=== PATIENT | female | born 1955 | race Caucasian/White ===

== ENCOUNTER 2025-02-20 13:05 | Outpatient (NON) | payer MEDICARE, SELFPAY ==
[2025-02-20 13:37] LABS: Hematocrit 32.0 % (35.0-42.0); Hemoglobin 9.9 g/dL (11.7-13.8); Immature Granulocyte Percent A 0.6 % (0.0-0.0); Lymphocytes Absolute Auto 1.04 K/mm3 (1.10-4.50); Mean Corpuscular HGB Conc 30.9 g/dL (32-36); Mean Corpuscular Hemoglobin 26.8 pg (27.0-31.0); Mean Corpuscular Volume 86.7 fL (78.0-102.0); Nucleated Red Blood Cells Absolute Auto 0.00 K/mm3 (0.00-0.00); Nucleated Red Blood Cells Perc 0.0 % (0-0.0); Platelet Count Result 220 K/mm3 (150-420); Red Blood Count 3.69 M/mm3 (4.20-5.40); White Blood Count 7.8 K/mm3 (4.8-10.8)
--- OUTSIDE RECORDS SUMMARY | 2025-02-20 13:50 | XMS_ITS | Encounter Summary ---
Author Organization [facility] Address [address] [place] [id number] Care Team Providers Care Loss Prevention Consultant Name Role Phone Dusty Cordero MD Primary Care Provider [phone] Helen Kennedy MD Unavailable Josefa Jewell MD Unavailable Unavailabl Mina Veloz MD Unavailable Melani Velasco MD Primary Care Provider + [phone] Desirae Bills MD Unavailable [phone] Encounter Details Date Type Department Care Team (Latest Contact Info) Description 02/13/2018 Abstract [facility] , Santi Díaz MD Social History Tobacco Use Types Packs/Day Years Used Date Smoking Tobacco: Never Assessed Comments Unknown Sex and Gender Information Value Date Recorded Sex Assigned at Female 11/07/2022 12:28 PM CDT Legal Sex Female 7:10 PM CDT Gender Identity Female 11/07/2022 12:28 PM CDT Sexual Orientation Straight 11/07/2022 12 :28 PM CDT documented as of this encounter Plan of Treatment Not on file documented as of this encounter Visit Diagnoses Not on filedocumented in this encounter Additional Health Concerns Infection Onset Date Last Indicated Resolved Time COVID-19 Rule Out 07/14/2020 07/14/2020 07/15/2020 2:31 PM CDT COVID-19 Rule Out 03/21/2021 03/21/2021 03/21/2021 2:29 PM HYDRO STATION SUPERVISOR COVID-19 Rule Out 04/13/2021 04/13/2021 04/13/2021 2:59 PM HYDRO STATION SUPERVISOR COVID-19 Confirmed 04/13/2021 04/13/2021 12:32 AM HYDRO STATION SUPERVISOR COVID-19 Rule Out 04/11/2022 04/11/2022 04/11/2022 11:55 AM HYDRO STATION SUPERVISOR COVID-19 Rule Out 07/19/2022 07/19/2022 07/19/2022 9:03 AM CDT COVID-19 Rule Out 02/18/2023 02/18/2023 02/18/2023 12:23 PM HYDRO STATION SUPERVISOR COVID-19 Rule Out 02/09/2024 02/09/2024 02/09/2024 10:15 PM CDT COVID-19 Rule Out 02/24/2024 02/24/2024 02/24/2024 9:41 AM HYDRO STATION SUPERVISOR Respiratory Rule Out 06/04/2024 06/04/2024 025 9:33 AM HYDRO STATION SUPERVISOR COVID-19 Rule Out 06/04/2024 06/04/2024 06/04/2024 9:33 AM HYDRO STATION SUPERVISOR documented as of this encounter Care Teams Loss Prevention Consultant Relationship Specialty Start Date End Date Dusty Cordero MD PCP - General FAMILY PRACTICE 12/31/18 07/18/22 Melani Velasco MD [address] [place] [phone] PCP - General FAMILY PRACTICE 07/19/22 Helen Kennedy MD [address] [place] [address] Consulting Physician CARDIOVASCULAR DISEASE 02/17/20 Josefa Jewell MD [address] [place] [address] Consulting Physician CARDIOVASCULAR DISEASE 05/21/20 Mina Perez MD [address] [place] [address] Vascular/Ophthalmic Surgeon INTERNAL MEDICINE 10/16/20 Desirae Bills MD [address] [place] [address] Consulting Physician OTOLARYNGOLOGY 05/30/24 05/30/25 documented as of this encounter
--- OUTSIDE RECORDS SUMMARY | 2025-02-20 13:50 | XMS_ITS | Encounter Summary ---
Author Organization [facility] Address [address] [place] [address] Care Team Providers Care Home Teaching Grades 7 And 8 Teacher Name Role Phone Dusty Cordero MD Primary Care Provider [phone] Helen Kennedy MD Unavailable Josefa Jewell MD Unavailable Unavailabl e Mina Perez MD Unavailable Melani Velasco MD Primary Care Provider + [phone] Desirae Bills MD Unavailable [phone] Encounter Details Date Type Department Care Team (Late st Contact Info) Description 06/24/2017 Abstract [facility] [address] [place] [address] , Generic Conversion, Social History Tobacco Use Types Packs/Day Years [...] Rule Out 03/21/2021 03/21/2021 03/21/2021 2:29 PM HOME BASED ASSISTANT COVID-19 Rule Out 04/13/2021 04/13/2021 04/13/2021 2:59 PM HOME BASED ASSISTANT COVID-19 Confirmed 04/13/2021 04/13/2021 12:32 AM HOME BASED ASSISTANT COVID-19 Rule Out 04/11/2022 04/11/2022 04/11/2022 11:55 AM HOME BASED ASSISTANT COVID-19 Rule Out 07/19/2022 07/19/2022 07/19/2022 9:03 AM CDT COVID-19 Rule Out 02/18/2023 02/18/2023 02/18/2023 12:23 PM HOME BASED ASSISTANT COVID-19 Rule Out 02/09/2024 02/09/2024 02/09/2024 10:15 PM CDT COVID-19 Rule Out 02/24/2024 02/24/2024 02/24/2024 9:41 AM HOME BASED ASSISTANT Respiratory Rule Out 06/04/2024 06/04/2024 025 9:33 AM HOME BASED ASSISTANT COVID-19 Rule Out 06/04/2024 06/04/2024 06/04/2024 9:33 AM HOME BASED ASSISTANT documented as of this encounter Care Teams Home Teaching Grades 7 And 8 Teacher Relationship Specialty Start Date End Date Dusty Cordero MD PCP - General FAMILY PRACTICE 12/31/18 07/18/22 Melani Velasco MD [address] [place] [phone] PCP - General FAMILY PRACTICE 07/19/22 Helen Kennedy MD [address] [place] [address] Consulting Physician CARDIOVASCULAR DISEASE 02/17/20 Josefa Jewell MD [address] [place] [address] Consulting Physician CARDIOVASCULAR DISEASE 05/21/20 Mina Perez MD [address] [place] [address] Vascular/District Sales Coordinator INTERNAL MEDICINE 10/16/20 Desirae Bills MD [address] [place] [address] Consulting Physician OTOLARYNGOLOGY 05/30/24 05/30/25 documented as of this encounter
--- OUTSIDE RECORDS SUMMARY | 2025-02-20 13:50 | XMS_ITS | Encounter Summary ---
Author Organization [facility] Address [facility] [place] [address] Care Team Providers Care Director Drug Name Role Phone Dusty Cordero MD Primary Care Provider [phone] Helen Kennedy MD Unavailable Josefa Jewell MD Unavailable Unavailabl Mina Veloz MD Unavailable Melani Velasco MD Primary Care Provider + [phone] Desirae Bills MD Unavailable [phone] Encounter Details Date Type Department Care Team (Late st Contact Info) Description 09/15/2018 Abstract [facility] [address] [place] [address] , Generic Conversion, Social History Tobacco Use [...] Rule Out 03/21/2021 03/21/2021 03/21/2021 2:29 PM SALESPERSON SURGICAL APPLIANCES COVID-19 Rule Out 04/13/2021 04/13/2021 04/13/2021 2:59 PM SALESPERSON SURGICAL APPLIANCES COVID-19 Confirmed 04/13/2021 04/13/2021 12:32 AM SALESPERSON SURGICAL APPLIANCES COVID-19 Rule Out 04/11/2022 04/11/2022 04/11/2022 11:55 AM SALESPERSON SURGICAL APPLIANCES COVID-19 Rule Out 07/19/2022 07/19/2022 07/19/2022 9:03 AM CDT COVID-19 Rule Out 02/18/2023 02/18/2023 02/18/2023 12:23 PM SALESPERSON SURGICAL APPLIANCES COVID-19 Rule Out 02/09/2024 02/09/2024 02/09/2024 10:15 PM CDT COVID-19 Rule Out 02/24/2024 02/24/2024 02/24/2024 9:41 AM SALESPERSON SURGICAL APPLIANCES Respiratory Rule Out 06/04/2024 06/04/2024 025 9:33 AM SALESPERSON SURGICAL APPLIANCES COVID-19 Rule Out 06/04/2024 06/04/2024 06/04/2024 9:33 AM SALESPERSON SURGICAL APPLIANCES documented as of this encounter Care Teams Director Drug Relationship Specialty Start Date End Date Dusty Cordero MD PCP - General FAMILY PRACTICE 12/31/18 07/18/22 Melani Velasco MD [address] [place] [phone] PCP - General FAMILY PRACTICE 07/19/22 Helen Kennedy MD [address] [place] [address] Consulting Physician CARDIOVASCULAR DISEASE 02/17/20 Josefa Jewell MD [address] [place] [address] Consulting Physician CARDIOVASCULAR DISEASE 05/21/20 Mina Perez MD [address] [place] [address] Vascular/Glazier Stained Glass INTERNAL MEDICINE 10/16/20 Desirae Bills MD [address] [place] [address] Consulting Physician OTOLARYNGOLOGY 05/30/24 05/30/25 documented as of this encounter
--- OUTSIDE RECORDS SUMMARY | 2025-02-20 13:50 | XMS_ITS | Encounter Summary ---
Author Organization [facility] Address [address] [place] [address] Care Team Providers Care Web Project Manager Name Role Phone Mina Perez MD Unavailable Melani Velasco MD Primary Care Provider [phone] Desirae Bills MD Unavailable [phone] Encounter Details Date Type Department Care Team (Late st Contact Info) Description 03/05/2024 Hospital Follow-up Call [facility] [address] [place] [address] Lynda Sanchez, RN Social History Tobacco Use Types Packs/Day Years Used Date Smoking Tobacco: Never Smokeless Tobacco: Never Alcohol Use Standard Drinks/Week Comments Never 0 (1 standard drink = 0.6 oz pur e alcohol) OASIS D0700: Social Isolation Answer Da te Recorded Frequency of experiencing loneliness or isolatio n Never 02/06/2023 OASIS A1250: Transportation Answer Date Recorded Lack of Transportation (Medical) No 02/06/2023 Lack of Transportation (Non-Medical) No 02/06/2023 Patient Unable or Declines to Respond No 02/06/2023 OASIS B1300: Health Literacy Answer Ruben e Recorded Frequency of needing help to read materials from doctor or pharmacy Never 02/06/2023 [facility] Utilities Answer Date Recorded In the past 12 months has th e [employer], gas, oil, or water company threatened to shut off services in your home? No 02/24/2024 Humiliation, Afraid, Rape, and Kick questionnair e Answer Date Recorded Within the last year, have y ou been afraid of your partner or ex-partner? No 02/24/2024 Within the last year, have y ou been humiliated or emotionally abused in other ways by your partner or ex-partner? No Within the last year, have y ou been kicked, hit, slapped, or otherwise physically hurt by your partner or ex-partner? No 02/24/2024 Within the last year, have y ou been raped or forced to have any kind of sexual activity by your partner or ex-partner? No 02/24/2024 Social Connection and Isolation Panel Answer Date Recorded In a typical week, how many times do you talk on the phone with family, friends, or neighbors? More than three times a week 11/07/2022 How often do you get togethe r with friends or relatives? Twice a week 11/07/2022 How often do you attend chur ch or mandaeism services? More than 4 times per year 11/07/2022 Do you belong to any clubs o r organizations such as mu-ism groups, unions, fraternal or athletic groups, or school groups? Yes 11/07/2022 How often do you attend meet ings of the clubs or organizations you belong to? More than 4 times per year 11/07/2022 Are you , , di vorced, , never , or living with a partner? 11/07/2022 AUDIT-C Answer Date Recorded Q1: How often do you have a drink containing alcohol? Never 11/07/2022 Q2: How many drinks containi ng alcohol do you have on a typical day when you are drinking? Patient does not drink Q3: How often do you have si x or more drinks on one occasion? Never 11/07/2022 Overall Financial Resource Strain (CARDIA) Answe r Date Recorded How hard is it for you to pa y for the very basics like food, housing, medical care, and heating? Not hard at all 02/24/2024 PHQ-2 Answer Date Recorded Patient Health Questionnaire-2 Score 0 11/07/2022 [facility] - Occupational Stress Questionnaire Answer Date Recorded Do you feel stress - tense, restless, nervous, or anxious, or unable to sleep at night because your mind is troubled all the time - these days? To some extent 02/18/2023 Exercise Vital Sign Answer Date Recorde d On average, how many days pe r week do you engage in moderate to strenuous exercise (like a brisk walk)? 0 days 02/18/2023 On average, how many minutes do you engage in exercise at this level? 0 min 02/18/2023 Hunger Vital Sign Answer Date Recorded Within the past 12 months, y ou worried that your food would run out before you got the money to buy more. Never true 02/24/20 24 Within the past 12 months, t he food you bought just didn't last and you didn't have money to get more. Never true 02/24/2024 PRAPARE - Transportation Answer Date Re corded In the past 12 months, has l ack of transportation kept you from medical appointments or from getting medications? No 02/08 In the past 12 months, has l ack of transportation kept you from meetings, work, or from getting things needed for daily living? No 02/24/2024 Housing Stability Vital Sign Answer Ruben e Recorded In the last 12 months, was t here a time when you were not able to pay the mortgage or rent on time? No 03/03/2023 In the last 12 months, how many places have you lived? 1 03/03/2023 In the last 12 months, was t here a time when you did not have a steady place to sleep or slept in a intermediate (including now)? No 03/03/2023 Housing Stability Vital Sign Answer Ruben e Recorded In the last 12 months, was t here a time when you were not able to pay the mortgage or rent on time? No 02/24/2024 In the past 12 months, how m any times have you moved where you were living? 1 02/24/2024 At any time in the past 12 [facility], were you homeless or living in a intermediate (including now)? No 02/24/2024 Comments No Sex and Gender Information Value Date Recorded Sex Assigned at Female 11/07/2022 12:28 PM CDT Legal Sex Female 7:10 PM CDT Gender Identity Female 11/07/2022 12:28 PM CDT Sexual Orientation Straight 11/07/2022 12 :28 PM CDT Occupation Industry Job Start Date Job End Date Not on file Not on file Not on file Not on file documented as of this encounter Functional Status * Are you deaf or do you have serious difficulty hearing Answer Date of Assessment Author Status No 02/24/2024 3:18 PM Cha Cox RN Active * Are you blind or do you have serious difficulty seeing, even when wearing glasses? Answer Date of Assessment Author Status No 02/24/2024 3:18 PM Cha Cox RN Active * Do you have serious difficulty walking or climbing stairs? Answer Date of Assessment Author Status No 02/24/2024 3:18 PM Cha Cox RN Active * Do you have difficulty dressing or bathing? Answer Date of Assessment Author Status No 02/24/2024 3:18 PM Cha Cox RN Active * Because of a physical, mental, or emotional condition, do you have difficulty doing errands alone such as visiting a doctor's office or shopping? Answer Date of Assessment Author Status No 02/24/2024 3:18 PM Cha Cox RN Active documented as of this encounter Mental Status * Because of a physical, mental, or emotional condition, do you have serious difficulty concentrating, remembering, or making decisions? Answer Entry Date Author Status No 02/24/2024 3:18 PM Cha Cox RN Active documented in this encounter Plan of Treatment Not on file documented as of this encounter Goals Goal Patient Goal Type Associated Problems Recent Progress Patient-Stated? Author Patient will return to prior living situation and remain independent in ADLs upon discharge from hospital Lifestyle No Deidra Dacosta RN documented as of this encounter Visit Diagnoses Not on filedocumented in this encounter Additional Health Concerns Infection Onset Date Last Indicated Resolved Time Respiratory Rule Out 06/04/2024 06/04/2024 025 9:33 AM FINANCIAL REPRESENTATIVE COVID-19 Rule Out 06/04/2024 06/04/2024 06/04/2024 9:33 AM FINANCIAL REPRESENTATIVE Assessment Noted Time PHQ-9 Depression Total Score: 0 04/08/20 21 9:26 AM FINANCIAL REPRESENTATIVE documented as of this encounter Care Teams Web Project Manager Relationship Specialty Start Date End Date Melani Velasco MD [address] [place] [phone] PCP - General FAMILY PRACTICE 07/19/22 Mina Perez MD Vascular/Mosaic Tiler INTERNAL MEDICINE 10/16/20 Desirae Bills MD [address] [place] [phone] Consulting Physician OTOLARYNGOLOGY 05/30/24 05/30/25 documented as of this encounter
--- OUTSIDE RECORDS SUMMARY | 2025-02-20 13:51 | XMS_ITS | Patient Health Record ---
Author Organization [facility] Address [address] [place] [address] Care Team Providers Care Scrap Materials Buyer Name Role Phone KALYN CAMPA Unavailable [phone] Dusty Cordero Unavailable Unavailable Reason For Referral No Information Medications Medication SIG (Take, Route, Frequency, Duration) Notes Start Date End Date Status Nitrofurantoin ; Duration: -2 *Pick strength-form from [facility]pan for eRX* 10/01/2019 Active Carvedilol 3.125 MG Oral; Duration: -2 10/01/2019 Active Losartan Potassium ; Duration: -2 *Pick strength-form from [facility] for eRX* 10/01/2019 Active Aspirin 81 ; Duration: -2 *Pick strength-form from [facility] for eRX* 10/01/2019 Active TRAMADOL 50 ; Duration: -2 *Reorder from [facility] for eRx and Interaction Alerts* 10/01/2019 Active Ipratropium-Albuterol 0.5 mg-3 mg(2.5 ; Duration: -2 *Pick strength-form from [facility] for eRX* 10/01/2019 Active Fluconazole 200 MG Oral; Duration: -2 10/01/2019 Active Nitroglycerin 0.4 MG Sublingual; Duration: -2 10/01/2019 Active Ventolin HFA ; Duration: -2 *Pick strength-form from [facility] for eRX* 10/01/2019 Active Lidocaine 4 % External; Duration: -2 09/17/2019 Active HUMALOG U-100 INSULIN ; Duration: -2 *Reorder f rom [facility] for eRx and Interaction Alerts* 10/01/2019 Active Claritin ; Duration: -2 *Pick strength-form from Med[facility] for eRX* 10/01/2019 Active Bisoprolol-hydroCHLORO thiazide 5-6.25 MG Oral; Duration: -2 10/01/2019 Act tee Gabapentin 300 ; Duration: -2 *Pick strength-form from [facility] for eRX* 11/19/2019 Active ATORVASTATIN 20 ; Duration: -2 *Reorder from [facility] for eRx and Interaction Alerts* 10/01/2019 Active Gabapentin 100 MG Oral Capsule *Reorder from [facility] for eRx and Interaction Alerts* 09/17/2019 Active Gabapentin 100 MG Oral; Duration: -2 10/17/2019 Active Lisinopril 2.5 ; Duration: -2 *Pick strength-form from [facility] for eRX* 10/01/2019 Active Nystatin 966151 UNIT/GM External; Duration: -2 10/01/2019 Active Symbicort 160-4.5 MCG/ACT Inhalation; Duration: -2 10/01/2019 Active Fluoxetine 20 ; Duration: -2 *Reorder from [facility] for eRx and Interaction Alerts* 10/01/2019 Active PANTOPRAZOLE 40 ; Duration: -2 *Reorder from [facility] for eRx and Interaction Alerts* 10/01/2019 Active Ondansetron 4 MG Oral; Duration: -2 10/01/2019 Active Fluticasone Propionate 50 MCG/ACT Nasal; Duration: -2 10/01/2019 Active Nystop 253616 UNIT/GM External; Duration: -2 10/01/2019 Active Colace 100 MG Oral; Duration: -2 10/01/2019 Active GLUCAGEN ; Duration: -2 *Reorder from [facility] for eRx and Interaction Alerts* 10/01/2019 Active Celecoxib 200 MG Oral; Duration: -2 10/01/2019 Active Nystatin-Triamcinolone ; Duration: -2 *Pick strength-form from [facility] for eRX* 10/01/2019 Active CLOPIDOGREL 75 ; Duration: -2 *Reorder from [facility] for eRx and Interaction Alerts* 10/01/2019 Active Problems Problem Type SNOMED Code ICD Code Onset Dates Problem Status W/U Status Risk Notes Problem Plantar wart (20881828) Plantar wart (B07.0) 12/18/19 21 Active confirmed Problem Disorder of thyroid gland (61685512) Disorder of thyroid, unspecified (E07.9) 09/17/19 20 Active confirmed Problem Polyneuropathy due to type 2 diabetes mellitus (436095178) Type 2 diabetes mellitus with diabetic polyneuropathy (E11.42) 12/18/19 21 Active confirmed Problem Atherosclerotic heart disease of [place] coronary artery without angina pectoris (142980031071266) Atherosclerotic heart disease of [place] coronary artery without angina pectoris (I25.10) 09/17/19 20 Active confirmed Problem Old myocardial infarction (2326276) Old myocardial infarction (I25.2) 09/17/19 20 Active confirmed Problem Peripheral vascular disease (607768018) Other specified peripheral vascular diseases (I73.89) 09/16/19 20 Active confirmed Problem Embolism from thrombosis of vein of lower extremity (391374047) Acute embolism and thrombosis of unspecified deep veins of unspecified lower extremity (I82.409) 09/17/19 20 Active confirmed Problem Chronic obstructive pulmonary disease (51634847) Chronic obstructive pulmonary disease, unspecified (J44.9) 09/17/19 20 Active confirmed Problem Uncomplicated asthma (disorder) (036710281) Unspecified asthma, uncomplicated (J45.909) 09/17/19 20 Active confirmed Problem 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) 12/18/19 21 Active confirmed Problem Plantar fascial fibromatosis (92375722) Plantar fascial fibromatosis (M72.2) 07/14/19 21 Active confirmed Problem Metatarsalgia of left foot (552099848897889) Metatarsalgia, left foot (M77.42) 07/14/19 21 Active confirmed Problem Long-term current use of anticoagulant (414428908) skilled nursing (current) use of anticoagulants (Z79.01) 09/17/19 20 Active confirmed Problem Family history of ischemic heart disease (959324060) Family history of ischemic heart disease and other diseases of the circulatory system (Z82.49) 09/17/19 20 Active confirmed Problem Essential hypertension (66162457) Essential (primary) hypertension (I10) 09/17/19 20 Active confirmed Plan Of Treatment No Information Insurance Providers Payer Name Payer Address Payer Phone Subscriber Number Group Number Insured Name Patient Relationship to Insured Coverage Start Date Coverage End Date [place] [address] ELVIRA LEVIN [id number] [phone] [id number] FRANDY SWANN Self - patient is the insured [facility] DEPT OF PUBLIC AID [address] [address] [place] [address] [phone] [id number] FRANDY SWANN Self - patient is the insured
--- OUTSIDE RECORDS SUMMARY | 2025-02-20 13:51 | XMS_ITS | Clinical Summary ---
Author Organization [facility] Address [facility] [place] [address] Care Team Providers Care Separating Machine Operator Name Role Phone Mina Perez MD Unavailable Melani Velasco MD Primary Care Provider [phone] Desirae Bills MD Unavailable [phone] Allergies Active Allergy Reactions Criticality Noted Date Comments Influenza Vaccines Other (see comment) 01/22/20 21 Contradicted with treatment for ruptured disc Cephalexin Rash Low 01/21/2021 Latex Rash Low 01/21/2021 Levofloxacin Rash Low 01/21/2021 Tape Rash Low 01/21/2021 Medications ipratropium-albut amilcar 0.5-2.5 (3) MG/3ML SolutionIndicatio ns:asthma, copd Take by nebulization every 6 (six) hours as needed. Indications: asthma, copd Active albuterol sulfate HFA 108 (90 Base) MCG/ACT inhalerIndication s:asthma, copd Inhale 2 puffs into the lungs every 4 (four) hours as needed for Wheezing. Indications: asthma, copd Active fluoxetine 20 MG capsuleIndication s:depression Take 1 capsule (20 mg total) by mouth nightly at bedtime. Indications: depression Active fluticasone propionate 50 MCG/ACT nasal sprayIndications: sinus allergies 1 spray by Nasal route 2 (two) times daily. Indications: sinus allergies Active docusate sodium 100 MG capsuleIndication s:stool softner Take 1 capsule (100 mg total) by mouth 2 (two) times daily as needed for Constipation. Indications: stool softner 10 capsule 020 Active BREO ELLIPTA 200-25 MCG/INH inhalerIndication s:asthma, copd INHALE 1 PUFF BY MOUTH ONCE DAILY Active cyanocobalamin 1000 MCG/ML injectionIndicati ons:supplement INJECT 1 ML ONCE EVERY MONTH 021 Active Continuous Blood Gluc Sensor (DEXCOM G6 SENSOR) Misc CHANGE EVERY 10 DAYS Active omeprazole 20 MG capsuleIndication s:acid reflux Take 1 capsule (20 mg total) by mouth 2 (two) times a day. Indications: acid reflux 021 Active clopidogrel (PLAVIX) 75 MG tabletIndications :blood thinner Take 1 tablet by mouth once daily 90 tablet 022 Active rosuvastatin (CRESTOR) 10 MG tabletIndications :cholesterol TAKE 1 TABLET BY MOUTH ONCE DAILY AT BEDTIME 90 tablet 022 Active magnesium oxide (MAG-OX) 400 MG tabletIndications :supplement Take 1 tablet (400 mg total) by mouth daily. 30 tablet 022 Active Additional Information Patient taking differently:400 mg Oral2 times daily, Indications: supplement, Reported on 06/05/2024 OXYGENIndications :hypoxia 2 L/min by Nasal route as needed (hypoxia). to wear at sleep, as needed for dyspnea Indications: hypoxia 023 Active Cholecalciferol (VITAMIN D3) 50 MCG (2000 UT) CapIndications:Vi tamin D Deficiency Take 1 capsule by mouth daily. Indications: Vitamin D Deficiency Active gabapentin (NEURONTIN) 600 MG tabletIndications :Neuropathic Pain Take 2 tablets (1,200 mg total) by mouth 3 (three) times daily. Indications: Neuropathic Pain 023 Active RIMEGEPANT SULFATE OR Take 75 mg by mouth as needed. Active insulin regular, CONCENTRATED, (HUMULIN R) 500 UNIT/ML SolutionIndicatio ns:Diabetes Mellitus Inject 35 Units into the skin see administration instructions. Indications: Diabetes with breakfast , lunch and supper 20 mL 023 Active Additional Information Patient taking differently: 115 UnitsSubcutaneous See admin instructions, 115 [id number] bedtime, Indications: Diabetes Mellitus, Reported on 06/05/2024 montelukast (SINGULAIR) 10 MG tabletIndications :asthma, copd Take 1 tablet by mouth once daily 90 tablet Active losartan (COZAAR) 100 MG tablet Take 1 tablet (100 mg total) by mouth daily. Active Glucagon (GVOKE HYPOPEN 1-PACK) 0.5 MG/0.1ML Solution Auto-injector Active insulin glargine (LANTUS) 100 UNIT/ML injection (VIAL) Inject 65 Units into the skin 2 (two) times daily. Active levETIRAcetam (KEPPRA) 500 MG tablet Take 1.5 tablets (750 mg total) by mouth 2 (two) times daily. Active levothyroxine (SYNTHROID) 75 MCG tablet Take 1 tablet (75 mcg total) by mouth every morning. Active furosemide (LASIX) 20 MG tablet Take 2 tablets (40 mg total) by mouth daily. 120 tablet Active apixaban (ELIQUIS) 5 MG tablet Take 1 tablet (5 mg total) by mouth 2 (two) times daily. Start Taking Apixaban 5 mg BID FROM 03/08/24. DO NOT TAKE MEDICATION BEFORE 60 tablet Active ondansetron (ZOFRAN-ODT) 4 MG disintegrating tablet Take 1 tablet (4 mg total) by mouth every 8 (eight) hours as needed for Nausea. 20 tablet Active celecoxib (CELEBREX) 200 MG capsule Take 1 capsule (200 mg total) by mouth 2 (two) times daily. Active dicyclomine (BENTYL) 20 MG tablet Take 2 tablets (40 mg total) by mouth 2 (two) times daily as needed. 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, with fat layer exposed 12/01/2022 Cellulitis 11/07/2022 Long QT interval 01/01/2022 Syncope 12/30/2021 Mild CAD 08/12/2021 Shortness of breath 04/11/2021 Chronic pulmonary aspiration 12/18/2020 Wheezing 12/18/2020 Excessive daytime sleepiness 12/18/2020 Hyperlipidemia, unspecified hyperlipidemia type 11/10/2020 Left atrial enlargement 05/26/2020 Bilateral carotid artery stenosis 05/06/2020 Chronic venous insufficiency 05/06/2020 Calcium pyrophosphate deposition disease 020 IBS (irritable bowel syndrome) 07/17/2019 COPD (chronic obstructive pulmonary disease) Hypertension Resolved Problems Problem Noted Date Diagnosed Date Resolved Date UTI (urinary tract infection) 01/22/2022 11/07/2022 Hypokalemia 01/21/2022 01/23/2022 Acute cystitis with positive culture 01/01/2022 11/07/2022 JORDON (acute kidney injury) 07/18/2019 Anemia 07/18/2019 07/19/2019 Lactic acidosis 07/17/2019 07/19/2019 Hypotension 07/17/2019 07/19/2019 Dehydration 07/17/2019 07/19/2019 Syncope 07/17/2019 07/19/2019 Hypokalemia 07/17/2019 07/19/2019 Infected superficial injury of right thumb, initial encounter 04/28/2019 11/07/2022 Diabetes mellitus 01/23/2022 Encounters Date Type Department Care Team Description 11/27/2024 [facility] [address] [place] [address] Cardiology, Physician Information from Last 3 Months Immunizations Immunization Administration Dates Next Due Tdap (Boostrix) 09/06/2024 Family History Medical History Relation Comments Migraines/Headaches Child Osteoporosis Child Asthma Father COPD Father Cancer Father Diabetes Father Heart Disease Father Osteoporosis Father Diabetes Mother Heart Attack Mother Heart Disease Mother Relation Status Comments Child Father Mother Social History Tobacco Use Types Packs/Day Years Used Date Smoking Tobacco: Never Smokeless Tobacco: Never Tobacco Cessation:Counseling Given: Not Answered Alcohol Use Standard Drinks/Week Comments Never 0 [...] materials from doctor or pharmacy Never 02/06/2023 [facility] Utilities Answer Date Recorded In the past 12 months has th e [employer], oil, or water [employer] threatened to shut off services in your home? No 06/05/2024 Humiliation, Afraid, Rape, and Kick questionnair e Answer Date Recorded Within the last year, have y ou been afraid of your partner or ex-partner? No 06/05/2024 Within the last year, have y ou been humiliated or emotionally abused in other ways by your partner or ex-partner? No Within the last year, have y ou been kicked, hit, slapped, or otherwise physically hurt by your partner or ex-partner? No 06/05/2024 Within the last year, have y ou been raped or forced to have any kind of sexual activity by your partner or ex-partner? No 06/05/2024 Social Connection and Isolation Panel Answer Date Recorded In a typical week, how many times do you talk on the phone with family, friends, or neighbors? More than three times a week 11/07/2022 How often do you get togethe r with friends or relatives? Twice a week 11/07/2022 How often do you attend [facility] or [facility] services? More than 4 times per year 11/07/2022 Do you belong to any clubs o r organizations such as bahai groups, unions, fraternal or athletic groups, or [...] care, and heating? Not hard at all 06/05/2024 PHQ-2 Answer Date Recorded Patient Health Questionnaire-2 Score 0 11/07/2022 [facility] - Occupational Stress [...] the money to buy more. Never true 06/05/19 25 Within the past 12 months, t he food you bought just didn't last and you didn't have money to get more. Never true 06/05/2024 PRAPARE - Transportation Answer Date Re corded In the past 12 months, has l ack of transportation kept you from medical appointments or from getting medications? No 05/12 In the past 12 months, has l ack of transportation kept you from meetings, work, or from getting things needed for daily living? No 06/05/2024 Housing Stability Vital Sign Answer Ruben e [...] place to sleep or slept in a alf (including now)? No 03/03/2023 Housing Stability Vital Sign Answer Ruben e Recorded In the last 12 months, was t here a time when you were not able to pay the mortgage or rent on time? No 06/05/2024 In the past 12 months, how m any times have you moved where you were living? 1 06/05/2024 At any time in the past 12 m onths, were you homeless or living in a alf (including now)? No 06/05/2024 Comments No Sex and Gender Information Value Date Recorded Sex Assigned at Female 11/07/2022 12:28 PM CDT Legal Sex Female 7:10 PM CDT Gender Identity Female 11/07/2022 12:28 PM CDT Sexual Orientation Straight 11/07/2022 12 :28 PM CDT Occupation Industry Job Start Date Job End Date Not on file Not on file Not on file Not on file Last Filed Vital Signs Vital Sign Reading Time Taken Comments Blood Pressure 101/46 09/06/2024 9:00 PM CDT Pulse 60 09/06/2024 9:00 PM CDT Temperature 36.1 C (97 F) 09/06/2024 6:19 PM CDT Respiratory Rate 11 09/06/2024 9:00 PM CDT Oxygen Saturation 90% 09/06/2024 9:00 PM CDT Inhaled Oxygen Concentration - - Weight 133.4 kg (294 lb) 09/06/2024 6:19 PM CDT Height 174 cm (5' 8.5) 09/06/2024 6:19 PM CDT Body Mass Index 44.05 09/06/2024 6:19 PM CDT Plan of Treatment Health Maintenance Due Date Last Done Comments ASCVD Statin 1955 Colorectal Cancer Screening Colonoscopy (10 Years) 1957 Kidney Health Evaluation 1957 Diabetes: Retinopathy Eye Exam 10/29/1975 Hepatitis C 10/29/1975 Pneumococcal Vaccine: 50+ Years (1 of 2 - PCV) 1976 Zoster Vaccines (1 of 2) 10/29/2007 RSV Immunization or 60+ Years (1 - Risk 60-74 years 1-dose series) 2017 Mammogram Screening 12/23/2021 12/24/2019 Annual Medicare Wellness Visit 2022 ASCVD LDL 02/20/2024 02/19/2023 Lipid Panel 02/20/2024 02/19/2023 PHQ-2 (Physician [place]) 04/10/2024 Hemoglobin A1C 09/02/2024 06/05/2024, 02/09, 12/21/2022, Additional history exists COVID-19 Vaccine (2024- season) 2024 Influenza Adult (#1) 2025 DTaP, Tdap and Td Vaccines (3 - Td or Tdap) 09/06/2034 09/06/2024, 07/20/2020 Dexa Scan (General) Completed 08/06/2020 Hepatitis A Vaccines Aged Out No long er eligible based on patient's age to complete this topic Meningococcal B Vaccine Aged Out No l onger eligible based on patient's age to complete this topic Meningococcal Vaccine Aged Out No brie miguel eligible based on patient's age to complete this topic RSV Immunizations Under 20 Months Aged Out No longer eligible based on patient's age to complete this topic Goals Goal Patient Goal Type Associated Problems Recent Progress Patient-Stated? Author Patient will return to prior living situation and remain independent in ADLs upon discharge from hospital Lifestyle No Deidra Dacosta RN Medical Devices Implanted Type Area Pilot Boat Captain Device Identifier Shelf Expiration Date Model / Serial / Lot Rv Lead-09/08/2022 Implanted:Qty: 1 on 09/08/2022 by Quan Ortega MD Lead Implant Right: Ventricle [employer] [id number] / [id number] / Ra Lead-09/08/2022 Implanted:Qty: 1 on 09/08/2022 by Quan Ortega MD Lead Implant Right: Atrium [employer] [id number] / [id number] / Pacemaker-2022 Implanted:Qty: 1 on 09/08/2022 by Quan Ortega MD Pacemaker Chest [employer] [id number] / [id number] / Description:MRI CONDITIONAL UNDER FOLLOWING CONDITIONS: Static magnetic field 1.5 T or 3 T, Max spatial gradient 5000 Gauss/cm or less, Max whole body MIKE in Normal operating mode only of 2 W/kg or less, Head IMKE 3.2 W/kg or less Procedures Procedure Name Priority Date/Time Associated Diagnosis Comments HEMOGLOBIN, GLYCOSYLATED Routine 06/05/2024 8:33 AM SPECIAL INVESTIGATION UNIT INVESTIGATOR LIPID PANEL Routine 02/19/2023 1:26 AM SPECIAL INVESTIGATION UNIT INVESTIGATOR BONE DENSITY/DEXA Routine 08/06/2020 10: 13 AM CDT Postmenopausal MG SCREENING W ROCKY GIULIANO DIGI Routine 12/24/2019 2:33 PM CDT Visit for screening mammogram from Last 3 Months or Most Recently Relevant to Health Maintenance Results * (ABNORMAL) HEMOGLOBIN, GLYCATED (06/05/2024 8:33 AM SPECIAL INVESTIGATION UNIT INVESTIGATOR) HGB A1C 10.8(H) <5.7 % 06/05/2024 9:21 AM SPECIAL INVESTIGATION UNIT INVESTIGATOR [facility] ESTIMATED AVG GLUCOSE 263(H) 74 - 114 MG/DL 06/05/2024 9:21 AM [facility] 06/05/2024 8:33 AM SPECIAL INVESTIGATION UNIT INVESTIGATOR Eloisa Colon MD LABORATORY Final Result Performing Organization Address City/State/[facility] Co de Phone Number [facility] [address] [place] [address], [id number] * (ABNORMAL) LIPID PANEL (02/19/2023 1:26 AM SPECIAL INVESTIGATION UNIT INVESTIGATOR) CHOLESTEROL 75 MG/DL 02/19/2023 5:58 AM [facility] Comment:DESIRABLE: <200 TRIGLYCERIDES 208 MG/DL 02/19/2023 5:58 AM [facility] Comment:200-499 HIGH HDL 44(L) >49 MG/DL 02/19/2023 5:58 AM [facility] LDL (CALCULATED) NEG 11 MG/DL 02/20/20 5:58 AM [facility] Comment:<100 OPTIMAL VLDL CALCULATION CALCULATION NOT VALID, TRIG >400 MG/DL 02/19/2023 5:58 AM [facility] CHOL/HDL RATIO 1.7 02/19/2023 5:58 AM [facility] Comment:REFERENCE RANGE NOT ESTABLISHED LDL/HDL CALCULATION NOT VALID, TRIG >400 02/19/2023 5:58 AM SPECIAL INVESTIGATION UNIT INVESTIGATOR [facility] NON HDL CHOLESTEROL 31 MG/DL 02/19/2023 5:58 AM SPECIAL INVESTIGATION UNIT INVESTIGATOR [facility] Comment:REFERENCE RANGE NOT ESTABLISHED 02/19/2023 1:26 AM SPECIAL INVESTIGATION UNIT INVESTIGATOR Jessica Ovalles MD LABORATORY Final Result [facility] [address] [place] [address], [id number] * BONE DENSITY/DEXA (08/06/2020 10:13 AM CDT) Anatomical Region Laterality Modality Bone Bone Density 08/06/2020 10:1 2 AM CDT Impressions 08/06/2020 10:15 AM CDT Impression: BMD measured at AP lumbar spine, right total hip and right femoral neck at WHO category level of normal. Referred By: CURT DSOUZA Interpreted By: Heri Sexton MD, 08/06/2020 10:12 AM Narrative 08/06/2020 10:15 AM CDT Examination: DEXA Bone densitometry EXAM DATE: 08/06/2020 10:13 AM Clinical history: Postmenopausal. Prior hysterectomy. Screening for osteoporosis. Technique: DEXA bone minimal density evaluation was performed in the AP projection over the lumbar spine and over the right hip in the AP projection utilizing standard imaging techniques. Assessment: The BMD measured at the AP spine L1-L4 is 1.117 g/cm? with a T-score of 0.6 and a Z-Score of 2.2. Bone density is up to 10% below young normal. This patient is considered normal according to the World Health Organization (WHO) criteria. Fracture risk is low. The BMD measured at the femur total right is 0.941 g/cm? with a T-score of 0.0 and aZ-Score of 1.1. Bone density is up to 10% below young normal. This patient is considered normal according to the World Health Organization (WHO) criteria. Fracture risk is low. The BMD measured over the right femoral neck is 0.795 g/sq cm resulting in a T score of -0.5 and a Z score 0.9, values at the WHO category level of normal. Fracture results: 10 year probability of major osteoporotic fracture 6.1% and of hip fracture 0.2%. Recommendations: All patients should ensure an adequate intake of dietary calcium and vitamin D. The NOF recommend adults under the age of 50 need 1000 mg of calcium and 400-800 IU of vitamin D daily. Effective therapy for the prevention and treatment of osteoporosis include biphosphonates. Follow-up: People with diagnosed cases of osteoporosis or at high risk for fracture should have regular bone mineral density test. For patients eligible for Medicare, routine testing is allowed once every 2 years. Testing frequency can be increased to one year for patients who have rapidly progressing disease, those who are receiving or discontinuing medical therapy to restore bone mass, or have additional risk factors. Based on these results, a followup exam is recommended in no earlier than 2 years. Procedure Note Heri Sexton MD - 08/06/2020 Examination: DEXA Bone densitometry EXAM DATE: 08/06/2020 10:13 AM Clinical history: Postmenopausal. Prior hysterectomy. Screening for osteoporosis. Technique: DEXA bone minimal density evaluation was performed in the AP projection over the lumbar spine and over the right hip in the AP projection utilizing standard imaging techniques. Assessment: The BMD measured at the AP spine L1-L4 is 1.117 g/cm? with a T-score of0.6 and a Z-Score of 2.2. Bone density is up to 10% below young normal.This patient is considered normal according to the World Health Organization (WHO) criteria. Fracture risk is low. The BMD measured at the femur total right is 0.941 g/cm? with a T-scoreof 0.0 and aZ-Score of 1.1. Bone density is up to 10% below youngnormal. This patient is considered normal according to the World Health Organization (WHO) criteria. Fracture risk is low. The BMD measured over the right femoral neck is 0.795 g/sq cm resultingin a T score of -0.5 and a Z score 0.9, values at the WHO category level of normal. Fracture results: 10 year probability of major osteoporotic fracture6.1% and of hip fracture 0.2%. Recommendations: All patients should ensure an adequate intake of dietary calcium and vitamin D. The NOF recommend adults under the age of 50 need 1000 mg of calcium and 400-800 IU of vitamin D daily. Effective therapy for the prevention and treatment of osteoporosis include biphosphonates. Follow-up: People with diagnosed cases of osteoporosis or at high risk for fracture should have regular bone mineral density test. For patients eligible for Medicare, routine testing is allowed once every 2 years. Testingfrequency can be increased to one year for patients who have rapidly progressing disease, those who are receiving or discontinuing medical therapy to restore bone mass, or have additional risk factors. Based on these results, a followup exam is recommended in no earlier than2 years. Impression: BMD measured at AP lumbar spine, right total hip and right femoral neckat WHO category level of normal. Referred By: CURT DSOUZA Interpreted By: Heri Sexton MD, 08/06/2020 10:12 AM Curt ESPARZA DEXA Final Result * MG SCREENING W ROCKY GIULIANO DIGI (12/24/2019 2:33 PM CDT) Anatomical Region Laterality Modality Breast Bilateral Mammography 12/25/2019 4:43 PM CDT Impressions 12/25/2019 4:44 PM CDT IMPRESSION: No suspicious change since the previous exams. Recommendation: 1: Routine screening mammogram Bilateral in 1 Year Assessment: ACR BI-RADS Category 2 - Benign. Interpreted By: Lobito Ward MD, 12/25/2019 4:43 PM Narrative 12/25/2019 4:44 PM CDT Examination: Digital screening mammogram with CAD. Clinical history: Asymptomatic patient presents for routine screening. Comparison: 02/03/2015, 08/26/2013. Technique: Bilateral digital mammograms. The exam was interpreted with the use of a computer-aided detection (CAD) system. Additional 3-D tomosynthesis images were acquired. Tissue density: The breast tissue contains scattered fibroglandular densities. Findings: Positioning, particularly for the MLO views, is nonstandard secondary to patient body habitus. The breast tissue contains scattered fibroglandular densities. Benign-appearing calcification noted. No suspicious mass, microcalcification or area of architectural distortion can be identified. From a mammographic standpoint, routine followup in one year would seem adequate. Sobeida Shah REHAB SPEC MAMMO Final Resu lt from Last 3 Months or Most Recently Relevant to Health Maintenance Insurance MEDICAID MEDICARE Advance Directives * Full Code (Latest Code Status on File) Date Activated Date Inactivated Comments 06/05/2024 1:49 AM 06/06/2024 3:02 PM * Full Code Date Activated Date Inactivated Comments 02/29/2024 2:17 PM 03/04/2024 1:14 PM * Full Code Date Activated Date Inactivated Comments 02/25/2024 11:17 AM 02/29/2024 2:17 PM * Full Code Date Activated Date Inactivated Comments 03/02/2023 9:28 PM 03/07/2023 7:38 PM * Full Code Date Activated Date Inactivated Comments 02/18/2023 6:59 PM 02/22/2023 3:01 PM Care Teams Separating Machine Operator Relationship Specialty Start Date End Date Melani Velasco MD [address] [place] [address] [phone] PCP - General FAMILY PRACTICE 07/19/22 Mina Perez MD Vascular/Header Up INTERNAL MEDICINE 10/16/20 Desirae Bills MD [address] [place] [id number] Consulting Physician OTOLARYNGOLOGY 05/30/24 05/30/25
--- OUTSIDE RECORDS SUMMARY | 2025-02-20 13:51 | XMS_ITS | Patient Health Record ---
Author Organization [facility] Address [address] [place], [place] [id number] Care Team Providers Care Associate Entertainment Editor Name Role Phone AURELIA Aldana Unavailable [phone] Dusty Cordero Unavailable Unavailable Reason For Referral No Information Social History Social History Additional Details Category Social Info Options Details Migrated Social History Migrated Social History History of tobacco use : , Smoking Status : Never used tobacco Plan Of Treatment No Information Insurance Providers Payer Name Payer Address Payer Phone Subscriber Number Group Number Insured Name Patient Relationship to Insured Coverage Start Date Coverage End Date Medicare Part B [facility] [address] [place] [phone] [id number] FRANDY SWANN Self - patient is the insured
[2025-02-20 14:15] LABS: Alanine Aminotransferase 21 U/L (6-35); Albumin Level 3.5 g/dL (3.5-5.1); Alkaline Phosphatase 115 U/L (38-126); Anion Gap 7 mmol/L (4-12); Aspartate Amino Transferase 27 U/L (14-36); Blood Urea Nitrogen 19 mg/dL (7-17); Calcium 8.9 mg/dL (8.4-10.2); Carbon Dioxide 29 mmol/L (22-30); Chloride 105 mmol/L (98-107); Estimated Glomerular Filt Rate > 60; Glucose 204 mg/dL (65-110); Osmolality Calculated 300 mOsm/kg (285-295); Potassium 4.2 mmol/L (3.4-5.0); Sodium 141 mmol/L (137-145); Total Protein 5.7 g/dL (6.3-8.2)
[2025-02-20 14:38] LABS: Hemoglobin A1C 8.1 % (<5.7)
[2025-02-20 14:46] LABS: Thyroid Stimulating Hormone 2.440 uIU/mL (0.465-4.680)
[2025-02-20 15:24] LABS: Vitamin B12 181.0 pg/mL (239-931)
[2025-02-21 12:20] LABS: Total Triiodothyronine (T3) 1.32 NG/ML (0.97-1.69)
[2025-02-25 13:40] LABS: Bilirubin,Total 0.4 mg/dL (0.2-1.3)
--- OUTSIDE RECORDS SUMMARY | 2025-04-05 18:00 | XMS_ITS | Clinical Summary ---
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 Active 04-10 00:00: 00 PRIMARY GENERALIZED (OSTEO)ARTHR ITIS Active 04-10 00:00: 00 OTHER SPECIFIED CHRONIC OBSTRUCTIVE PULMONARY DISEASE Active 04-10 00:00: 00 MODERATE PERSISTENT ASTHMA, UNCOMPLICATE D Active 04-10 00:00: 00 ESSENTIAL (PRIMARY) HYPERTENSION Active 04-10 00:00: 00 EPILEPSY, UNSP, NOT INTRACTABLE, WITHOUT STATUS EPILEPTICUS Active 04-10 00:00: 00 MIGRAINE, UNSP, NOT INTRACTABLE, WITHOUT STATUS MIGRAINOSUS Active 04-10 00:00: 00 CYST OF PANCREAS Active 04-10 00:00: 00 FATTY (CHANGE OF) LIVER, NOT ELSEWHERE CLASSIFIED Active 04-10 00:00: 00 MAJOR DEPRESSIVE DISORDER, SINGLE EPISODE, UNSPECIFIED Active 04-10 00:00: 00 HYPOTHYROIDI SM, UNSPECIFIED Active 04-10 00:00: 00 VENTRAL HERNIA WITHOUT OBSTRUCTION OR GANGRENE Active 04-10 00:00: 00 ATHSCL HEART DISEASE OF [place] CORONARY ARTERY W/O ANG PCTRS Active 04-10 00:00: 00 VENOUS INSUFFICIENC Y (CHRONIC) (PERIPHERAL) Active 04-10 00:00: 00 TYPE 1 DIABETES MELLITUS WITH DIABETIC POLYNEUROPAT HY Active 04-10 00:00: 00 GASTRO-ESOPH AGEAL REFLUX DIS WITH ESOPHAGITIS, WITHOUT BLEED Active 04-10 00:00: 00 BENIGN NEOPLASM OF LEFT ADRENAL GLAND Active 04-10 00:00: 00 HYPOMAGNESEM IA Active 04-10 00:00: 00 Irritable bowel syndrome, unspecified Active 04-10 00:00: 00 MIXED HYPERLIPIDEM IA Active 04-10 00:00: 00 OBSTRUCTIVE SLEEP APNEA (ADULT) (PEDIATRIC) Active 04-10 00:00: 00 MORBID (SEVERE) OBESITY DUE TO EXCESS CALORIES Active 04-10 00:00: 00 BODY MASS INDEX [BMI] 50.0-59.9, ADULT Active 04-10 00:00: 00 UNSPECIFIED ATRIAL FIBRILLATION Active 04-10 00:00: 00 CHRONIC PANSINUSITIS Active 04-10 00:00: 00 ALLERGIC RHINITIS, UNSPECIFIED Active 04-10 00:00: 00 ABNORMAL ELECTROCARDI OGRAM [ECG] [EKG] Active 04-10 00:00: 00 DISORDER OF ARTERIES AND ARTERIOLES, UNSPECIFIED Active 04-10 00:00: 00 OTHER SPONDYLOSIS WITH RADICULOPATH Y, SITE UNSPECIFIED Active 04-10 00:00: 00 DETENTION (CURRENT) USE OF INHALED STEROIDS Active 04-10 00:00: 00 DETENTION (CURRENT) USE OF ANTITHROMBOT ICS/ANTIPLAT ELETS Active 04-10 00:00: 00 INFORMATION SYSTEMS TECHNICIAN (CURRENT) USE OF ANTICOAGULAN TS Active 04-10 00:00: 00 OTHER DETENTION (CURRENT) DRUG THERAPY Active 04-10 00:00: 00 INFORMATION SYSTEMS TECHNICIAN (CURRENT) USE OF INSULIN Active 04-10 00:00: 00 HORMONE REPLACEMENT THERAPY Active 04-10 00:00: 00 DEPENDENCE ON SUPPLEMENTAL OXYGEN Active 04-10 00:00: 00 HISTORY OF FALLING Active 04-10 00:00: 00 PROBLEMS RELATED TO LIVING ALONE Active 04-10 00:00: 00 Allergies, Adverse Reactions, Alerts Allergy Name Allergy Type Status Severity Reaction(s) Onset Date Inactive Date Treating Clinician Comments INFLUENZA VIRUS VACC,SPECIFI C Propensity to adverse reactions Active 2024-04 08:10: 55 LEVOFLOXACIN Propensity to adverse reactions Active 2024-04 08:11: 03 NAPROXEN Propensity to adverse reactions Active 2024-04 08:11: 12 CEPHALEXIN Propensity to adverse reactions Active 2024-04 08:11: 19 Medications Ordered Medication Name Filled Medication Name Start Date Stop Date Current Medication? Ordering Clinician Indication Dosage Frequency Signature (SIG) Comments Components albuterol sulfate HFA 90 mcg/actuati on aerosol inhaler 2024-04 00:00: 00 Yes [id number] WHEEZING/SH ORTNESS OF BREATH 2 puff EVERY 4 HOURS 2 puff EVERY 4 HOURS (route: inhalation ) Med Classific ation: Respirato ry Therapy Agents allopurinol 300 mg tablet 2024-04 00:00: 00 Yes [id number] GOUT 1 tablet ONCE DAILY 1 tablet ONCE DAILY (route: oral) Med Classific ation: Gout and Hyperuric emia Therapy Breo Ellipta 200 mcg-25 mcg/dose powder for inhalation 2024-04 00:00: 00 Yes [id number] COPD 1 inhalat ion ONCE DAILY 1 inhalation ONCE DAILY (route: inhalation ) Med Classific ation: Respirato ry Therapy Agents Celebrex 200 mg capsule 2024-04 00:00: 00 Yes [id number] ARTHRITIS 1 capsule TWICE DAILY 1 capsule TWICE DAILY (route: oral) Med Classific ation: Analgesic , Anti-infl ammatory or Antipyret ic cetirizine 10 mg tablet 2024-04 00:00: 00 Yes [id number] ALLERGIES 1 tablet ONCE DAILY 1 tablet ONCE DAILY (route: oral) Med Classific ation: Respirato ry Therapy Agents clopidogrel 75 mg tablet 2024-04 00:00: 00 Yes [id number] PREVENT BLOOD CLOTS 1 tablet ONCE DAILY 1 tablet ONCE DAILY (route: oral) Med Classific ation: Hematolog ical Agents docusate sodium 100 mg capsule 2024-04 00:00: 00 Yes [id number] CONSTIPATIO N 1 capsule TWICE DAILY 1 capsule TWICE DAILY (route: oral) Med Classific ation: Gastroint estinal Therapy Agents duloxetine 30 mg capsule,del ayed release 2024-04 00:00: 00 Yes [id number] NEUROPATHY BLE 2 capsule ONCE DAILY 2 capsule ONCE DAILY (route: oral) Med Classific ation: Central Nervous System Agents Eliquis 5 mg tablet 2024-04 00:00: 00 Yes [id number] PREVENT BLOOD CLOTS 1 tablet TWICE DAILY 1 tablet TWICE DAILY (route: oral) Med Classific ation: Hematolog ical Agents Flonase Allergy Relief 50 mcg/actuati on nasal spray,suspe nsion 2024-04 00:00: 00 Yes [id number] ALLERGIES 1 spray TWICE DAILY 1 spray TWICE DAILY (route: nasal) Alternate Route: NOSTRIL - BOTH. Med Classific ation: Respirato ry Therapy Agents furosemide 40 mg tablet 2024-04 00:00: 00 Yes [id number] FLUID RETENTION 1 tablet ONCE DAILY 1 tablet ONCE DAILY (route: oral) Med Classific ation: Cardiovas cular Therapy Agents gabapentin 600 mg tablet 2024-04 00:00: 00 Yes [id number] NEUROPATHY BLE 2 tablet 3 TIMES DAILY 2 tablet 3 TIMES DAILY (route: oral) Med Classific ation: Central Nervous System Agents Glucosamine -Chondroiti n Complex capsule 2024-04 00:00: 00 Yes [id number] JOINT HEALTH 1 capsule TWICE DAILY 1 capsule TWICE DAILY (route: oral) Med Classific ation: Alternati ve Therapy Humulin R U-500 (Conc) Insulin Kwikpen 500 unit/mL (3 mL) subcutaneou s 2024-04 00:00: 00 Yes [id number] DM1 Per instruc tions 3 TIMES DAILY Per instructio ns 3 TIMES DAILY (route: subcutaneo us) Med Classific ation: Endocrine hydrocodone 5 mg-acetamin ophen 325 mg tablet 2024-04 00:00: 00 Yes [id number] SEVERE PAIN BLE 1 tablet EVERY 6 HOURS 1 tablet EVERY 6 HOURS (route: oral) Med Classific ation: Analgesic , Anti-infl ammatory or Antipyret ic Lantus Solostar U-100 Insulin 100 unit/mL (3 mL) subcutaneou s pen 2024-04 00:00: 00 Yes [id number] DM1 65 unit TWICE DAILY 65 unit TWICE DAILY (route: subcutaneo us) Med Classific ation: Endocrine levetiracet am 750 mg tablet 2024-04 00:00: 00 Yes [id number] SEIZURES 1 tablet TWICE DAILY 1 tablet TWICE DAILY (route: oral) Med Classific ation: Central Nervous System Agents levothyroxi ne 75 mcg capsule 2024-04 00:00: 00 Yes [id number] HYPOTHYROID ISM 1 capsule ONCE DAILY 1 capsule ONCE DAILY (route: oral) Med Classific ation: Endocrine losartan 25 mg tablet 2024-04 00:00: 00 Yes [id number] HIGH BP 1 tablet ONCE DAILY 1 tablet ONCE DAILY (route: oral) Med Classific ation: Cardiovas cular Therapy Agents magnesium 400 mg (as magnesium oxide) tablet 2024-04 00:00: 00 Yes [id number] LOW MAGNESIUM 2 tablet ONCE DAILY 2 tablet ONCE DAILY (route: oral) Med Classific ation: Electroly te Balance-N utritiona l Products metoprolol succinate ER 25 mg tablet,exte nded release 24 hr 2024-04 00:00: 00 Yes [id number] HIGH BP 1 tablet ONCE DAILY 1 tablet ONCE DAILY (route: oral) Med Classific ation: Cardiovas cular Therapy Agents montelukast 10 mg tablet 2024-04 00:00: 00 Yes [id number] ALLERGIES 1 tablet AT BEDTIME 1 tablet AT BEDTIME (route: oral) Med Classific ation: Respirato ry Therapy Agents omeprazole 40 mg capsule,del ayed release 2024-04 00:00: 00 Yes [id number] GERD 1 capsule ONCE DAILY 1 capsule ONCE DAILY (route: oral) Med Classific ation: Gastroint estinal Therapy Agents oxygen gas for inhalation 2024-04 00:00: 00 Yes [id number] LATOYA 2 Liter O2 - NIGHTLY 2 Liter O2 - NIGHTLY (route: inhalation ) Alternate Route: O2 - NASAL CANNULA. Med Classific ation: Medical Supplies and Durable Medical Equipment (DME) potassium chloride ER 20 mEq tablet,exte nded release 2024-04 00:00: 00 Yes [id number] LOW POTASSIUM 1 tablet TWICE DAILY 1 tablet TWICE DAILY (route: oral) Med Classific ation: Electroly te Balance-N utritiona l Products rosuvastati n 10 mg tablet 2024-04 00:00: 00 Yes [id number] CHOLESTEROL 1 tablet ONCE DAILY 1 tablet ONCE DAILY (route: oral) Med Classific ation: Cardiovas cular Therapy Agents Immunizations Ordered Immunization Name Filled Immunization Name Date Status Comments Refusal Reason ASKED PATIENT BUT PATIENT STATES NO VACCINE RECEIVED., N/A 2025-02-06 00:00:00 Vital Signs Vital Name Observation Time Observation Value Commen ts Temperature 2025-02-20 12:07:00.000 96.8 [degF] Temperature 2025-02-19 11:39:00.000 97.7 [degF] Temperature 2025-02-10 13:30:00.000 98.4 [degF] Temperature 2025-02-06 10:11:00.000 97.7 [degF] BMI (%) 2025-02-06 10:11:00.000 50 kg/m2 Height 2025-02-06 10:11:00.000 68 [in_us] Pulse 2025-02-20 12:07:00.000 68 /min Pulse 2025-02-19 11:39:00.000 82 /min Pulse 2025-02-10 13:30:00.000 80 /min Pulse 2025-02-06 10:11:00.000 87 /min O2 Saturation (%) 2025-02-20 12:07:00.000 99 % O2 Saturation (%) 2025-02-19 11:39:00.000 94 % O2 Saturation (%) 2025-02-10 13:30:00.000 98 % O2 Saturation (%) 2025-02-06 10:11:00.000 97 % Respirations 2025-02-20 12:07:00.000 18 /min Respirations 2025-02-19 11:39:00.000 18 /min Respirations 2025-02-10 13:30:00.000 20 /min Respirations 2025-02-06 10:11:00.000 17 /min Weight (lbs) 2025-02-20 12:08:00.000 330 [lb_av] Weight (lbs) 2025-02-06 10:11:00.000 330 [lb_av] Systolic Blood Pressure 2025-02-20 12:07:00.000 118 mm [Hg] Systolic Blood Pressure 2025-02-19 11:39:00.000 136 mm [Hg] Systolic Blood Pressure 2025-02-10 13:30:00.000 126 mm [Hg] Systolic Blood Pressure 2025-02-06 10:11:00.000 140 mm [Hg] Diastolic Blood Pressure 2025-02-20 12:07:00.000 60 mm [Hg] Diastolic Blood Pressure 2025-02-19 11:39:00.000 70 mm [Hg] Diastolic Blood Pressure 2025-02-10 13:30:00.000 68 mm [Hg] Diastolic Blood Pressure 2025-02-06 10:11:00.000 70 mm [Hg] Plan of Treatment Planned Activity Planned Date Details Comments Future Scheduled Test HOME HEALT H NURSE WILL INSTRUCT PATIENT/CAREGIVER ON TYPE 1 DIABETES DISEASE PROCESS, HOW TO CREATE A DIABETIC TOOLKIT TO MANAGE INVENTORY OF SUPPLIES, HOW TO PLAN FOR A SICK-DAY, AND WARNING SIGNS WHEN THE PATIENT EXPERIENCES LOW BLOOD SUGAR. [code = HOME HEALTH NURSE WILL INSTRUCT PATIENT/CAREGIVER ON TYPE 1 DIABETES DISEASE PROCESS, HOW TO CREATE A DIABETIC TOOLKIT TO MANAGE INVENTORY OF SUPPLIES, HOW TO PLAN FOR A SICK-DAY, AND WARNING SIGNS WHEN THE PATIENT EXPERIENCES LOW BLOOD SUGAR.] Future Scheduled Test SKILLED NU RSE WILL TEACH PATIENT/CAREGIVER ABOUT PERIPHERAL VASCULAR DISEASE CAUSES, RISK FACTORS, SIGN AND SYMPTOMS, COMPLICATIONS, TREATMENT, AND MANAGEMENT STRATEGIES. [code = SKILLED NURSE WILL TEACH PATIENT/CAREGIVER ABOUT PERIPHERAL VASCULAR DISEASE CAUSES, RISK FACTORS, SIGN AND SYMPTOMS, COMPLICATIONS, TREATMENT, AND MANAGEMENT STRATEGIES.] Future Scheduled Test THE CER TIFYING PHYSICIAN, ASSOCIATED PHYSICIAN, NPP OR PA WITHIN THE SAME GROUP MAY APPROVE AND SIGN THE ORDER (ON ANY PAGE) ATTESTING THAT THE COMPREHENSIVE OUTCOME ASSESSMENTS, EVALUATIONS, AND HOME HEALTH CERTIFICATION PLANS SUPPORT HOMEBOUND STATUS. HOME HEALTH WEB-PORTAL DOCUMENTATION ACCESSED BY THE PHYSICIAN MUST BE INCORPORATED INTO THE MEDICAL RECORD TO CORROBORATE THE PHYSICIAN, NPP, OR PA S F2F ENCOUNTER TO SUPPORT ELIGIBILITY FOR HOME HEALTH SERVICES. [code = THE CERTIFYING PHYSICIAN, ASSOCIATED PHYSICIAN, NPP OR PA WITHIN THE SAME GROUP MAY APPROVE AND SIGN THE ORDER (ON ANY PAGE) ATTESTING THAT THE COMPREHENSIVE OUTCOME ASSESSMENTS, EVALUATIONS, AND HOME HEALTH CERTIFICATION PLANS SUPPORT HOMEBOUND STATUS. HOME HEALTH WEB-PORTAL DOCUMENTATION ACCESSED BY THE PHYSICIAN MUST BE INCORPORATED INTO THE MEDICAL RECORD TO CORROBORATE THE PHYSICIAN, NPP, OR PA S F2F ENCOUNTER TO SUPPORT ELIGIBILITY FOR HOME HEALTH SERVICES.] Future Scheduled Test EACH ORDER ED IN-HOME OR TELEHEALTH VISIT, THE SKILLED NURSE WILL CONDUCT A COMPREHENSIVE ASSESSMENT INCLUDING VITAL SIGNS, PAIN, SAFETY, MENTAL/COGNITIVE/PSYCHOSOCIAL STATUS, MED MANAGEMENT, NUTRITION, SKIN INTEGRITY, PRESSURE ULCER PREVENTION, AND PATIENT/CAREGIVER ABILITY TO SUPPORT ORDERED CARE. SKILLED NURSE WILL INSTRUCT ON DISEASE PROCESS, MED MGMT., FALL PREVENTION AND SAFETY, INFECTION CONTROL AND PREVENTION, WARNING SIGNS, ADDRESS RESULTS OUTSIDE OF ORDERED PARAMETERS LISTED ON CARE PLAN, AND COORDINATE DISCHARGE WITH THE TREATING PROVIDER. MAY ACCEPT ORDERS FROM THE FOLLOWING PROVIDER(S) WHO WILL BE CONSULTING ON THE CERTIFIED CARE PLAN: DR. JOSH ROSA AND ANYONE COVERING IN THEIR ABSENCE [code = EACH ORDERED IN-HOME OR TELEHEALTH VISIT, THE SKILLED NURSE WILL CONDUCT A COMPREHENSIVE ASSESSMENT INCLUDING VITAL SIGNS, PAIN, SAFETY, MENTAL/COGNITIVE/PSYCHOSOCIAL STATUS, MED MANAGEMENT, NUTRITION, SKIN INTEGRITY, PRESSURE ULCER PREVENTION, AND PATIENT/CAREGIVER ABILITY TO SUPPORT ORDERED CARE. SKILLED NURSE WILL INSTRUCT ON DISEASE PROCESS, MED MGMT., FALL PREVENTION AND SAFETY, INFECTION CONTROL AND PREVENTION, WARNING SIGNS, ADDRESS RESULTS OUTSIDE OF ORDERED PARAMETERS LISTED ON CARE PLAN, AND COORDINATE DISCHARGE WITH THE TREATING PROVIDER. MAY ACCEPT ORDERS FROM THE FOLLOWING PROVIDER(S) WHO WILL BE CONSULTING ON THE CERTIFIED CARE PLAN: DR. JOSH ROSA AND ANYONE COVERING IN THEIR ABSENCE] Future Scheduled Test HOME HEALT H NURSE WILL TEACH THE PATIENT/CAREGIVER ABOUT WHAT IS A. FIB, HOW TO CHECK OWN PULSE AND TRACK, SIGNS AND SYMPTOMS OF WHEN ARRYTHMIA OCCURS, AND WHAT WARNING SIGNS TO CALL THE AGENCY, PHYSICIAN OR 911. [code = HOME HEALTH NURSE WILL TEACH THE PATIENT/CAREGIVER ABOUT WHAT IS A. FIB, HOW TO CHECK OWN PULSE AND TRACK, SIGNS AND SYMPTOMS OF WHEN ARRYTHMIA OCCURS, AND WHAT WARNING SIGNS TO CALL THE AGENCY, PHYSICIAN OR 911.] Future Scheduled Test SKILLED NU RSE TO OBSERVE AND ASSESS PATIENT WITH GENERALIZED DEPRESSION AND TEACH DEPRESSIVE SYMPTOMS. [code = SKILLED NURSE TO OBSERVE AND ASSESS PATIENT WITH GENERALIZED DEPRESSION AND TEACH DEPRESSIVE SYMPTOMS.] Future Scheduled Test HOME HEALT H NURSE WILL INSTRUCT AND VERIFY APPROPRIATE STEPS ON HOW THE PATIENT CHECKS OWN BLOOD GLUCOSE AND IMPORTANCE TO TRACK BLOOD RESULTS ON A DAILY LOG OR NOTEBOOK TO MONITOR TRENDS. PATIENT/CAREGIVER OR HOME HEALTH RN WILL PERFORM BLOOD GLUCOSE CHECKS. BLOOD GLUCOSE MONITORING WILL OCCUR NUMBER OF TIMES PER DAY. [code = HOME HEALTH NURSE WILL INSTRUCT AND VERIFY APPROPRIATE STEPS ON HOW THE PATIENT CHECKS OWN BLOOD GLUCOSE AND IMPORTANCE TO TRACK BLOOD RESULTS ON A DAILY LOG OR NOTEBOOK TO MONITOR TRENDS. PATIENT/CAREGIVER OR HOME HEALTH RN WILL PERFORM BLOOD GLUCOSE CHECKS. BLOOD GLUCOSE MONITORING WILL OCCUR NUMBER OF TIMES PER DAY.] Future Scheduled Test HOME HEALT H NURSE TO INSTRUCT PATIENT/CAREGIVER ON THE TYPE OF OXYGEN SUPPLY SYSTEM, BREATHING DEVICE, OXYGEN SAFETY, CLEANING OF OXYGEN SUPPLIES, EMERGENCY PREPAREDNESS TIPS WHEN MANAGING OXYGEN NEEDS, SIGNS OR SYMPTOMS TO CONTACT THE AGENCY OR PHYSICIAN. [code = HOME HEALTH NURSE TO INSTRUCT PATIENT/CAREGIVER ON THE TYPE OF OXYGEN SUPPLY SYSTEM, BREATHING DEVICE, OXYGEN SAFETY, CLEANING OF OXYGEN SUPPLIES, EMERGENCY PREPAREDNESS TIPS WHEN MANAGING OXYGEN NEEDS, SIGNS OR SYMPTOMS TO CONTACT THE AGENCY OR PHYSICIAN.] Future Scheduled Test HOME HEALT H NURSE WILL ASSESS FOR COMPLICATIONS RELATED TO ANTICOAGULATION/ANTIPLATELET USE AND INSTRUCT PATIENT/CAREGIVER ABOUT PRECAUTIONS TO FOLLOW AND SIGNS/SYMPTOMS TO REPORT. [code = HOME HEALTH NURSE WILL ASSESS FOR COMPLICATIONS RELATED TO ANTICOAGULATION/ANTIPLATELET USE AND INSTRUCT PATIENT/CAREGIVER ABOUT PRECAUTIONS TO FOLLOW AND SIGNS/SYMPTOMS TO REPORT.] Future Scheduled Test PHYSICAL T HERAPIST TO EVALUATE AND TREAT [code = PHYSICAL THERAPIST TO EVALUATE AND TREAT] Goal Patient Goal - S OC 02/06/25: TO IMPROVE AMBULATION SKILLS IN HOME AND STRENGTH TO COMPLETE ADL'S INDEPENDENTLY Goal Provider Goal - PATIENT/CAREGIVER WILL VERBALIZE UNDERSTANDING OF TYPE 1 DIABETES AND THE IMPORTANCE OF MANAGING THE BLOOD SUGAR WITHIN THE EXPECTED RANGE. PATIENT/CAREGIVER WILL ESTABLISH A DIABETIC TOOLKIT AND A SICK-DAY PLAN TO PREPARE FOR POTENTIAL CHANGES WITH BLOOD SUGARS RANGES. PATIENT/CAREGIVER WILL VERBALIZE WARNING SIGNS OF LOW BLOOD SUGAR AND WHAT ACTIONS TO TAKE. Goal Provider Goal - PATIENT/CAREGIVER WILL VERBALIZE/DEMONSTRATE ABILITY TO SELF-MANAGE PERIPHERAL VASCULAR DISEASE IN THE HOME SETTING EVIDENCED BY: VERBALIZATION OF SIGNS AND SYMPTOMS TO REPORT, VERBALIZATION/DEMONSTRATION OF WAYS TO PROMOTE VENOUS RETURN, LIFESTYLE MODIFICATIONS, UNDERSTANDING OF DEFINITION/PATHOPHYSIOLOGY/RELATED COMPLICATIONS OF DISEASE PROCESS. Goal Provider Goal - A PLAN OF CARE WILL BE ESTABLISHED THAT MEETS ALL PATIENT'S DETENTION NEEDS AND COUNTER SIGNED BY PHYSICIAN. Goal Provider Goal - PATIENT WILL BE FREE OF FALLS AND HOSPITALIZATIONS THROUGHOUT EPISODE OF CARE. PATIENT/CAREGIVER WILL UNDERSTAND AND ADHERE TO ORDERED DIET. PATIENT/CAREGIVER WILL INDEPENDENTLY MANAGE MEDICATIONS, UNDERSTAND ANY CHANGES, SIDE EFFECTS TO REPORT BY EOE. PATIENT WILL BE FREE OF INFECTION AND UNDERSTAND MEASURES OF PREVENTION. PATIENT/CAREGIVER WILL COLLABORATE WITH SKILLED NURSE TO DEVELOP POC AT SOC AND ON AN ONGOING BASIS UPDATES ARE NEEDED. UNDERSTAND PROGRESS MADE/DISCHARGE PLANNING. ADDITIONAL ORDERS WILL BE RECEIVED FROM ALTERNATE PHYSICIANS IN A TIMELY MANNER. Goal Provider Goal - BY THE END OF HOME HEALTH SERVICES, PATIENT/CAREGIVER WILL DEMONSTRATE HOW TO TAKE THEIR OWN PULSE AND VERBALIZE WHAT WARNING SIGNS TO CALL THE PHYSICIAN OR 911 BY THE END OF HOME HEALTH SERVICES. Goal Provider Goal - PATIENT/CAREGIVER WILL VERBALIZE UNDERSTANDING OF THE CONTRIBUTING FACTORS AND SYMPTOMS OF DEPRESSION. Goal Provider Goal - PATIENT/CAREGIVER WILL DEMONSTRATE PROPER TECHNIQUE WHEN CHECKING OWN BLOOD GLUCOSE, DEMONSTRATES ADHERES TO WRITING DOWN RESULTS USING A LOGBOOK, FOLLOWS THE PRESCRIBED FREQUENCY OF BLOOD SUGAR CHECKS PRIOR TO DISCHARGING FROM HOME HEALTH SERVICES. Goal Provider Goal - PATIENT/CAREGIVER WILL VERBALIZE UNDERSTANDING ON HOW TO CLEAN OXYGEN SUPPLIES, OXYGEN SAFETY, AND KNOW WHEN TO CONTACT THE PHYSICIAN BY THE END OF HOME HEALTH SERVICES. Goal Provider Goal - PATIENT/CAREGIVER WILL VERBALIZE UNDERSTANDING OF ANTICOAGULATION/ANTIPLATELET COMPLICATIONS TO REPORT AND PRECAUTIONS TO FOLLOW BY END OF HOME HEALTH SERVICES. Goal Provider Goal - Encounters Start Date/Time End Date/Time Encounter Type Admission Type Attending [facility] Care Facility Care Department Encounter ID Discharge Date Discharge Status Discharge Condition Discharge Reason Percent Goals Met 2025-02-06 00:00:00 2025-04-06 00:00:00 Outpatient NEW ADMISSION RICHY RODRIGUEZ [facility] [id number] [id number]
== END 2025-02-20 13:06 | disposition home or self-care (01) ==
LOC: CHSLAB 13:10
PROVIDERS: PCP Family Medicine; Visit Provider Family Medicine
DX: I10 Essential (primary) hypertension (principal); D51.9 Vitamin B12 deficiency anemia, unspecified; E10.51 Type 1 diabetes mellitus with diabetic peripheral angiopathy without gangrene; E03.9 Hypothyroidism, unspecified; E55.9 Vitamin D deficiency, unspecified
CPT/HCPCS: 36415; 80053; 82306; 82607; 82746; 83036; 84436; 84443; 84480; 85025